=== PATIENT | female | born 2005 | race Caucasian/White ===

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

== ENCOUNTER 2025-06-06 13:14 | Emergency (ER) | payer MEDICAID, SELFPAY ==
[2025-06-06 13:15] VITALS: BP 115/69; PULSE 91; RESP 16; TEMP 36.6; O2SAT 100; BMI 29.5
[2025-06-06 14:17] VITALS: BP 114/60; PULSE 81; RESP 16; TEMP 36.6; O2SAT 100
[2025-06-06] MEDS: Lidocaine 5% Patch 1 PATCH TOPICAL (14:17)
[2025-06-06] MEDS: Ketorolac 30 MG/ML Syringe IM (14:17)
--- NOTE | 2025-06-06 15:48 | EX.ED.GENINJ ---
HPI History of Present Illness Chief Complaint: Other, Pain/Inj Narrative Narrative: Patient is a 19-year-old female presenting to the emergency department for left-sided neck pain. Patient states that started 2 days ago. She reports that she went to urgent care yesterday and they gave her baclofen and naproxen. Patient states that this is helping with her pain but not completely taking her pain away which is why she is here today. She had no trauma to her neck, no falls. She has no headache or fevers. No neck rigidity. She reports that she is having some pain on the left side of her neck that feels like it goes down into her left upper arm and worsens with turning of the neck to the left and right. States she will intermittently have a tingling sensation in her arm as well. [facility] Medical History Degenerative disc disease Anxiety Depression Concussion FX FOOT MRSA (methicillin resistant Staphylococcus aureus) Recurrent UTI chest pain Home Medications ?Medication ?Instructions ?Recorded ?Last Taken ?Type baclofen 20 mg tablet 20 mg PO BID 06/06/25 Unknown History lidocaine 5 % topical patch 1 patch topical DAILY #15 ea 06/06/25 Unknown Rx (Lidoderm) naproxen 500 mg tablet 500 mg PO BID 06/06/25 Unknown History Allergy/AdvReac Type Severity Reaction Status Date / Time No Known Allergies Allergy Verified 06/06/25 13:17 Family History Other CVA (cerebral vascular accident) Heart disease Social History Smoking Status: Current every day smoker tobacco type: e-cigarettes alcohol intake: never ROS ROS ED ROS Narrative see HPI EXAM Physical Exam Narrative Exam Narrative: Vital signs: Reviewed General: Alert and orientedx3. No acute distress HEENT: Head is normocephalic and atraumatic, sinuses nontender, pupils equal round and reactive. Nares are patent. Oropharynx and throat exams normal. Neck: Supple without lymphadenopathy nontender. No midline cervical spinal tenderness palpation. No step-offs or deformities. There is no paraspinal muscle tenderness to palpation. Full range of motion of the neck with flexion and extension. No rigidity. No erythema or warmth. Cardiovascular: Regular rate and rhythm, no murmurs. No rubs or gallops. Normal S1 and S2 Respiratory: Clear to auscultation bilaterally. No wheezes, rales, rhonchi Abdominal: Soft and nontender. Normal bowel sounds. No guarding or rebound. Nonsurgical abdomen Extremities: Normal strength and sensation in bilateral upper extremities. No tenderness. No bruising. Normal range of motion. Normal sensation. Skin: No rash or redness. Neurological: Cranial nerves II through XII are grossly intact. Normal strength and sensation. Normal cerebellar function The rest of the physical exam is unremarkable Const Vital Signs: 06/06/25 13:15 06/06/25 13:32 06/06/25 14:17 Temperature 97.9 F 97.9 F Temperature Source Oral Pulse Rate 91 81 Respiratory Rate 16 16 Respiratory Effort Normal Respiratory Pattern Normal Blood Pressure 115/69 114/60 Blood Pressure Mean 84 78 Pulse Ox 100 100 Oxygen Delivery Method Room Air MDM MDM MDM Narrative Medical decision making narrative: Patient is a 19-year-old female presenting to the emergency department for left-sided neck pain. Patient was seen and examined. Vitals are stable. Patient resting bed comfortably no acute distress. Based on the history and exam likely cervical radiculopathy. Had no trauma or midline tenderness on exam. No neck rigidity, fevers or headaches such as suspect meningitis or encephalitis. No thoracic or lumbar back pain. No IV drug use to suspect spinal epidural abscess. She is neuro intact. Patient given Toradol and Flexeril here. She just started the naproxen and baclofen yesterday. I recommended that she continue taking this. I also sent for lidocaine patches. She does not have a primary care doctor, show a referral was given for 1. Patient discharged from the Emergency Department. I do not feel that the patient's evaluation reveals any acute reason for admission at this time. I instructed them to either follow-up with their primary care physician or promptly return to the Emergency Department for reevaluation should symptoms worsen or new symptoms develop. I explained what symptoms would indicate the need to return to the emergency department. Shared decision making was used. The patient voiced understanding of the treatment plan and is agreeable with it. Clinical impression: Cervical radiculopathy History & Record Review Discussion w/independent historian: Patient Discharge Plan Triage Chief Complaint: Other, Pain/Inj ED Provider: Christie Klein Dx/Rx/DC Orders Clinical Impression: Neck pain, musculoskeletal, Radiculopathy of cervical region Instructions: Neck Problems Relieve Sx, Cervical Radiculopathy, ED RICE Prescriptions: New lidocaine [Lidoderm] 5 % adhesive patch,medicated 1 patch topical DAILY Qty: 15 0RF Rx Instructions: leave on most painful area for up to 12 hrs No Action baclofen 20 mg tablet 20 mg PO BID naproxen 500 mg tablet 500 mg PO BID Stand Alone Forms: ED Work / School Excuse Primary Care Provider: Care Physician,No Primary Referrals: Joann Quiñonez MD [Med Staff - Brick Carrier] - 1 Day Care Physician,No Primary [Primary Care Provider] - Activity Restrictions/Additional Instructions: Continue taking the naproxen and baclofen at home. I also prescribed lidocaine patches. Try a heating pad or warm bath to help as well. Your evaluation in the Emergency Department did not reveal any acute reason for admission. However, I want to emphasize that you may be early in the course of a disease process or illness even if it is not present. For this reason you should follow-up within 24 hours for reevaluation with either your primary care physician or if necessary back here in the Emergency Department. You should return to the Emergency Department immediately if your symptoms worsen or new symptoms develop. Print Language: [place] Citizen Disposition Disposition: Home, Self Care Discharge Date/Time: 06/06/25 14:38
== END 2025-06-06 14:38 | disposition home or self-care (01) ==
PROVIDERS: Emergency Provider Student in an Organized Health Care Education/Training Program; Visit Provider Student in an Organized Health Care Education/Training Program
DX: M54.12 Radiculopathy, cervical region (principal); F17.290 Nicotine dependence, other tobacco product, uncomplicated
CPT/HCPCS: 96372; 99284